=== PATIENT | male | born 1995 | race American Indian/Alaskan Native ===

== ENCOUNTER 2018-10-27 16:04 | Inpatient (IN) | payer SELFPAY ==
--- NOTE | 2018-10-27 16:28 | Emergency Department Report ---
<EMMANUEL MAYER - Last Filed: 10/27/18 19:59> ED Psych HPI - General Chief Complaint: Psych Stated Complaint: PSYCH Time Seen by Provider: 10/27/18 16:27 Source: EMS Mode of arrival: Stretcher Limitations: Altered Mental Status - History of Present Illness Initial Comments: Patient was arrested by the police after he was found climbing off a tree and jumping to a house roof of a house where he took off his pants and then jumped down and broke into somebody's house. Patient was very psychotic when EMS arrived. He was given 5mg of Haldol IM, 50mg of Benadryl IM and Versed 5mg intranasally. Currently patient is sleeping and further medical history is unobtainable at this time. Patient was placed on 1013 hold by the police detention attendant. MD Complaint: other (Acute Psychosis) -: Sudden, This afternoon History of same: No Quality: resolved prior to arrival Improves With: medication Worsens With: none Treatments Prior to Arrival: placed on mental he, chemical restraints - Related Data Home Medications Medication Instructions Recorded Confirmed Last Taken Unobtainable 10/27/18 10/27/18 Unknown Allergies Allergy/AdvReac Type Severity Reaction Status Date / Time Unable to Assess Allergy Unverified 10/27/18 16:19 ED Review of Systems Comment: Unobtainable due to pts medical conditions (Patient is sleeping from the medication he received from EMS (Versed, Benadryl and Haldol)) ED Past Medical Hx - Past Medical History Previous Medical History?: No - Social History Smoking Status: Unknown if ever smoked - Medications Home Medications: Home Medications Medication Instructions Recorded Confirmed Last Taken Type Unobtainable 10/27/18 10/27/18 Unknown History ED Physical Exam - General Limitations: Altered Mental Status General appearance: obtunded, other (Unkempt) - Head Head exam: Present: atraumatic, normal inspection - Eye Eye exam: Present: PERRL - ENT ENT exam: Present: mucous membranes dry - Neck Neck exam: Present: normal inspection, full ROM - Respiratory Respiratory exam: Present: normal lung sounds bilaterally - Cardiovascular Cardiovascular Exam: Present: tachycardia, normal heart sounds - GI/Abdominal GI/Abdominal exam: Present: soft, normal bowel sounds. Absent: distended, tende rness, guarding, rebound, rigid - Rectal Rectal exam: Present: deferred - External exam: Present: normal external exam - Extremities Exam Extremities exam: Present: normal inspection, full ROM, normal capillary refill - Back Exam Back exam: Present: normal inspection - Neurological Exam Neurological exam: Present: other ([place] by arrousable to painful stimulation. GCS = 9.) - Psychiatric Psychiatric exam: Present: flat affect ED Course - Reevaluation(s) Reevaluation #1: 10/27/18 19:52 On re-evaluation, patient is still obtunded but easily arousable to painful stimuli GCS = 9. - Consultations Consultation #1: 10/27/18 18:00 I discussed patient care with the hospitalist numerical control tool programmer Dr Albert regarding admission for Observation. He deferred admission but rather preferred the patient remain in the ED and managed in the until his Rhabdomyolysis resolves. Patient is on 1013 hold currently. He will be seen by Psychiatry after he has been medically cleared. Consultation #2: 10/27/18 19:58 Patient was signed out to Dr Pringle at shift change pending further evaluation and management. ED Medical Decision Making - Lab Data Result diagrams: 10/27/18 16:15 10/27/18 19:32 Lab Results 10/27/18 10/27/18 10/27/18 Range/Units 16:15 16:15 16:15 WBC (4.5-11.0) K/mm3 RBC (3.65-5.03) M/mm3 Hgb (11.8-15.2) gm/dl Hct (35.5-45.6) % MCV (84-94) fl MCH (28-32) pg MCHC (32-34) % RDW (13.2-15.2) % Plt Count (140-440) K/mm3 Lymph % (Auto) (13.4-35.0) % [place] % (Auto) (0.0-7.3) % Eos % (Auto) (0.0-4.3) % Baso % (Auto) (0.0-1.8) % Lymph # (1.2-5.4) K/mm3 [place] # (0.0-0.8) K/mm3 Eos # (0.0-0.4) K/mm3 Baso # (0.0-0.1) K/mm3 Seg Neutrophils % (40.0-70.0) % Seg Neutrophils # (1.8-7.7) K/mm3 PT (12.2-14.9) Sec. INR (0.87-1.13) APTT (24.2-36.6) Sec. Sodium 141 (137-145) mmol/L Potassium 4.4 (3.6-5.0) mmol/L Chloride 98.2 (98-107) mmol/L Carbon Dioxide 21 L (22-30) mmol/L Anion Gap 26 mmol/L BUN 19 (9-20) mg/dL Creatinine 1.9 H (0.8-1.5) mg/dL Estimated GFR 54 ml/min BUN/Creatinine Ratio 10 % Glucose 112 H (75-100) mg/dL Calcium 9.8 (8.4-10.2) mg/dL Total Bilirubin (0.1-1.2) mg/dL Direct Bilirubin (0-0.2) mg/dL Indirect Bilirubin mg/dL AST (5-40) units/L ALT (7-56) units/L Alkaline Phosphatase (35-129) units/L Troponin T (0.00-0.029) ng/mL Total Protein (6.3-8.2) g/dL Albumin (3.9-5) g/dL Albumin/Globulin Ratio % Salicylates < 0.3 L (2.8-20.0) mg/dL Acetaminophen < 5.0 L (10.0-30.0) ug/mL Plasma/Serum Alcohol (0-0.07) % 10/27/18 10/27/18 10/27/18 Range/Units 16:15 16:15 16:15 WBC 7.0 (4.5-11.0) K/mm3 RBC 4.67 (3.65-5.03) M/mm3 Hgb 14.5 (11.8-15.2) gm/dl Hct 42.6 (35.5-45.6) % MCV 91 (84-94) fl MCH 31 (28-32) pg MCHC 34 (32-34) % RDW 12.8 L (13.2-15.2) % Plt Count 298 (140-440) K/mm3 Lymph % (Auto) 23.8 (13.4-35.0) % [place] % (Auto) 7.8 H (0.0-7.3) % Eos % (Auto) 1.3 (0.0-4.3) % Baso % (Auto) 0.8 (0.0-1.8) % Lymph # 1.7 (1.2-5.4) K/mm3 [place] # 0.5 (0.0-0.8) K/mm3 Eos # 0.1 (0.0-0.4) K/mm3 Baso # 0.1 (0.0-0.1) K/mm3 Seg Neutrophils % 66.3 (40.0-70.0) % Seg Neutrophils # 4.6 (1.8-7.7) K/mm3 PT (12.2-14.9) Sec. INR (0.87-1.13) APTT (24.2-36.6) Sec. Sodium (137-145) mmol/L Potassium (3.6-5.0) mmol/L Chloride (98-107) mmol/L Carbon Dioxide (22-30) mmol/L Anion Gap mmol/L BUN (9-20) mg/dL Creatinine (0.8-1.5) mg/dL Estimated GFR ml/min BUN/Creatinine Ratio % Glucose (75-100) mg/dL Calcium (8.4-10.2) mg/dL Total Bilirubin 0.60 (0.1-1.2) mg/dL Direct Bilirubin < 0.2 (0-0.2) mg/dL Indirect Bilirubin 0.4 mg/dL AST 55 H (5-40) units/L ALT 59 H (7-56) units/L Alkaline Phosphatase 86 (35-129) units/L Troponin T (0.00-0.029) ng/mL Total Protein 7.5 (6.3-8.2) g/dL Albumin 4.8 (3.9-5) g/dL Albumin/Globulin Ratio 1.8 % Salicylates (2.8-20.0) mg/dL Acetaminophen (10.0-30.0) ug/mL Plasma/Serum Alcohol < 0.01 (0-0.07) % 10/27/18 10/27/18 Range/Units 16:15 16:42 WBC (4.5-11.0) K/mm3 RBC (3.65-5.03) M/mm3 Hgb (11.8-15.2) gm/dl Hct (35.5-45.6) % MCV (84-94) fl MCH (28-32) pg MCHC (32-34) % RDW (13.2-15.2) % Plt Count (140-440) K/mm3 Lymph % (Auto) (13.4-35.0) % [place] % (Auto) (0.0-7.3) % Eos % (Auto) (0.0-4.3) % Baso % (Auto) (0.0-1.8) % Lymph # (1.2-5.4) K/mm3 [place] # (0.0-0.8) K/mm3 Eos # (0.0-0.4) K/mm3 Baso # (0.0-0.1) K/mm3 Seg Neutrophils % (40.0-70.0) % Seg Neutrophils # (1.8-7.7) K/mm3 PT 15.1 H (12.2-14.9) Sec. INR 1.12 (0.87-1.13) APTT 26.4 (24.2-36.6) Sec. Sodium (137-145) mmol/L Potassium (3.6-5.0) mmol/L Chloride (98-107) mmol/L Carbon Dioxide (22-30) mmol/L Anion Gap mmol/L BUN (9-20) mg/dL Creatinine (0.8-1.5) mg/dL Estimated GFR ml/min BUN/Creatinine Ratio % Glucose (75-100) mg/dL Calcium (8.4-10.2) mg/dL Total Bilirubin (0.1-1.2) mg/dL Direct Bilirubin (0-0.2) mg/dL Indirect Bilirubin mg/dL AST (5-40) units/L ALT (7-56) units/L Alkaline Phosphatase (35-129) units/L Troponin T < 0.010 (0.00-0.029) ng/mL Total Protein (6.3-8.2) g/dL Albumin (3.9-5) g/dL Albumin/Globulin Ratio % Salicylates (2.8-20.0) mg/dL Acetaminophen (10.0-30.0) ug/mL Plasma/Serum Alcohol (0-0.07) % - EKG Data -: EKG Interpreted by Me EKG shows normal: sinus rhythm Rate: tachycardia (109) - EKG Data When compared to previous EKG there are: previous EKG unavailable Interpretation: nonspecific ST-T wave ev 10/27/18 17:25 EKG was sent to the Child Protective Services Social Worker numerical control tool programmer Dr Pickard who reviewed it and agreed with the interpretaion. - Radiology Data Radiology results: report reviewed ED Disposition Clinical Impression: Acute psychosis, Maxillary sinusitis, acute, DAVID (acute kidney injury), Dehydration after exertion, Methamphetamine abuse, Polysubstance abuse Rhabdomyolysis Qualifiers: Rhabdomyolysis type: non-traumatic Qualified Code(s): M62.82 - Rhabdomyolysis Disposition: OP ADMIT IP TO THIS HOSP Does the pt Need Aspirin: No Condition: Stable Time of Disposition: 18:00 <LATANYA PRINGLE - Last Filed: 10/27/18 20:33> ED Medical Decision Making - Lab Data Result diagrams: 10/27/18 16:15 10/27/18 19:32 - Medical Decision Making I have reviewed the patient's case and spoken with the hospitalist, Dr. Albert, myself. Patient is presenting status post a psychiatric episode with this acute psychosis most likely secondary to drug abuse and rhabdomyolysis with acute kidney injury. Patient will need medical clearance for placement in psychiatric facility. The issue with this patient is that he also needs treatment for his rhabdomyolysis. Initially Dr. Ramirez who was planning to admit the patient however had discussed the case with Dr. Albert and since the patient is uninsured and so as not to add more financial burden to the patient's case the patient will remain in the emergency department with the hospitalist consult in to manage the rhabdomyolysis and acute kidney injury. Coronary Dr. Albert patient likely could be medically cleared within 2 days. He doesn't patient is uninsured placing the patient in a psych facility likely wouldn't result in the ER stay of approximately 3-5 days. I think it reasonable not to admit the pa megan at this time. We will continue to monitor patient for any changes in his medical condition that would warrant inpatient status. Critical Care Time: Yes (30) ED Disposition Is pt being admited?: No <NADIR DELGADO - Last Filed: 10/28/18 08:21> ED Review of Systems ROS: Stated complaint: PSYCH Other details as noted in HPI ED Course Vital Signs 10/27/18 10/27/18 10/27/18 16:16 17:35 17:37 Temperature Pulse Rate 105 H 85 Respiratory 26 H 18 19 Rate Blood Pressure 130/81 107/56 Blood Pressure [Left] O2 Sat by Pulse 99 100 100 Oximetry 10/27/18 10/27/18 10/27/18 17:38 17:45 18:00 Temperature 97.7 F Pulse Rate 19 L 83 74 Respiratory 19 18 15 Rate Blood Pressure 107/56 110/72 Blood Pressure 107/56 [Left] O2 Sat by Pulse 100 100 99 Oximetry 10/27/18 10/27/18 10/27/18 18:15 18:31 18:45 Temperature Pulse Rate 81 78 75 Respiratory 18 18 17 Rate Blood Pressure 110/72 110/72 110/72 Blood Pressure [Left] O2 Sat by Pulse 100 100 100 Oximetry 10/27/18 10/27/18 10/27/18 19:01 19:15 19:31 Temperature Pulse Rate 89 111 H 82 Respiratory 14 16 16 Rate Blood Pressure 114/61 114/61 114/61 Blood Pressure [Left] O2 Sat by Pulse 100 100 Oximetry 10/27/18 10/27/18 10/27/18 19:45 20:00 20:15 Temperature Pulse Rate 101 H 80 99 H Respiratory 17 15 15 Rate Blood Pressure 114/61 115/66 115/66 Blood Pressure [Left] O2 Sat by Pulse 100 100 Oximetry 10/27/18 10/27/18 10/27/18 20:31 20:45 21:00 Temperature Pulse Rate 103 H 91 H 88 Respiratory 14 16 16 Rate Blood Pressure 115/66 115/66 114/56 Blood Pressure [Left] O2 Sat by Pulse 100 100 Oximetry 10/27/18 10/27/18 10/27/18 21:15 21:31 21:45 Temperature Pulse Rate 90 87 101 H Respiratory 17 17 14 Rate Blood Pressure 114/56 114/56 114/56 Blood Pressure [Left] O2 Sat by Pulse 99 99 100 Oximetry 10/27/18 10/27/18 10/27/18 22:00 22:15 22:31 Temperature Pulse Rate 80 94 H 79 Respiratory 16 13 17 Rate Blood Pressure 116/61 116/61 116/61 Blood Pressure [Left] O2 Sat by Pulse Oximetry 10/27/18 10/27/18 10/27/18 22:45 23:01 23:15 Temperature Pulse Rate 80 70 72 Respiratory 16 10 L 17 Rate Blood Pressure 116/61 116/61 116/61 Blood Pressure [Left] O2 Sat by Pulse Oximetry 10/27/18 10/27/18 10/28/18 23:31 23:45 00:00 Temperature Pulse Rate 78 76 79 Respiratory 16 16 19 Rate Blood Pressure 116/61 114/60 130/73 Blood Pressure [Left] O2 Sat by Pulse Oximetry 10/28/18 10/28/18 10/28/18 00:15 00:31 00:45 Temperature Pulse Rate 61 72 84 Respiratory 14 15 19 Rate Blood Pressure 130/73 130/73 130/73 Blood Pressure [Left] O2 Sat by Pulse Oximetry 10/28/18 10/28/18 10/28/18 01:00 01:30 02:00 Temperature Pulse Rate 73 74 71 Respiratory 17 15 16 Rate Blood Pressure 116/69 116/69 110/51 Blood Pressure [Left] O2 Sat by Pulse Oximetry 10/28/18 10/28/18 10/28/18 02:31 03:00 03:31 Temperature Pulse Rate 59 L 70 71 Respiratory 14 14 14 Rate Blood Pressure 110/51 128/85 128/85 Blood Pressure [Left] O2 Sat by Pulse Oximetry 10/28/18 10/28/18 10/28/18 04:01 04:31 05:01 Temperature Pulse Rate 90 67 73 Respiratory 19 13 15 Rate Blood Pressure 128/85 131/51 105/54 Blood Pressure [Left] O2 Sat by Pulse Oximetry 10/28/18 10/28/18 10/28/18 05:31 06:01 06:31 Temperature Pulse Rate 71 72 66 Respiratory 16 13 14 Rate Blood Pressure 105/54 104/48 104/48 Blood Pressure [Left] O2 Sat by Pulse Oximetry 10/28/18 10/28/18 07:00 07:31 Temperature Pulse Rate 73 63 Respiratory 13 14 Rate Blood Pressure 111/54 111/54 Blood Pressure [Left] O2 Sat by Pulse Oximetry ED Medical Decision Making - Lab Data Result diagrams: 10/27/18 16:15 10/28/18 06:56 - Medical Decision Making I was asked to review patient's case by the nurse. Apparently he has remained sedated since ED stay and he is still unable to provide any history of present illness or informed staff of his allergies. CT head was reviewed. Patient received normal saline 5 L in the department with improvement and creatinine however CK level has almost doubled despite aggressive IV hydration and sodium bicarbonate. UDS Postive for meth, benzo, and marijuana. Patient will be admitted to the hospitalist service for further management. Case discussed with Dr. Guardado. Dr Lyle to admit Critical care attestation.: If time is entered above; I have spent that time in minutes in the direct care of this critically ill patient, excluding procedure time. ED Disposition Is pt being admited?: Yes Time of Disposition: 08:13 (admit to hosptialist service with psych consult)
[2018-10-27] MEDS ORDERED: NACL 0.9% 1000 ML 1,000 ML IV ONE ×3 (16:31→18:48)
[2018-10-27] MEDS ORDERED: NACL 0.9% 1000 ML 2,000 ML ONE (16:34)
[2018-10-27 16:46] LABS: Basophils # (Auto) 0.1 K/mm3 (0.0-0.1); Basophils % (Auto) 0.8 % (0.0-1.8); Eosinophils # (Auto) 0.1 K/mm3 (0.0-0.4); Eosinophils % (Auto) 1.3 % (0.0-4.3); Hematocrit 42.6 % (35.5-45.6); Hemoglobin 14.5 gm/dl (11.8-15.2); Lymphocytes # (Auto) 1.7 K/mm3 (1.2-5.4); Lymphocytes % (Auto) 23.8 % (13.4-35.0); Mean Corpuscular HGB Conc 34 % (32-34); Mean Corpuscular Volume 91 fl (84-94); Monocytes # (Auto) 0.5 K/mm3 (0.0-0.8); Monocytes % (Auto) 7.8 % (0.0-7.3); Platelet Count 298 K/mm3 (140-440); Red Blood Count 4.67 M/mm3 (3.65-5.03); Red Cell Distribution Width 12.8 % (13.2-15.2)
[2018-10-27 16:58] LABS: INR 1.12 (0.87-1.13)
[2018-10-27 16:59] LABS: Partial Thromboplastin Time 26.4 Sec. (24.2-36.6)
[2018-10-27 17:07] LABS: Calcium 9.8 mg/dL (8.4-10.2)
[2018-10-27 17:22] LABS: Alanine Aminotransferase 59 units/L (7-56); Albumin 4.8 g/dL (3.9-5)
[2018-10-27 17:23] LABS: Bilirubin,Direct < 0.2 mg/dL (0-0.2)
--- NOTE | 2018-10-27 18:03 | Consultation ---
History of Present Illness - Reason for Consult Consult date: 10/27/18 Reason for consult: Initial Psychiatric Evaluation - Chief Complaint Chief complaint: Patient sedated. - History of Present Psychiatric Illness Patient is a 23 year old male that was brought to the emergency room via EMS after he was found climbing off a tree, jumping to a house roof of a house where he took off his pants, and then jumped down and broke into somebody's house. Patient was very psychotic when EMS arrived. He was given 5mg of Haldol IM, 50mg of Benadryl IM and Versed 5mg intranasally. Currently patient is sleeping and further medical history is unobtainable at this time. At this time patient is sedated. Provider is unable to obtain assess. Current psychiatric medications: Unable to Assess. Past psychiatric history: Unable to Assess. Past psychiatric medication trials: Unable to Assess. History of trauma/abuse: Unable to Assess. Drugs/alcohol abuse history: Unable to Assess. Social history: Unable to Assess. Family History: Unable to Assess. Medications and Allergies Allergies Allergy/AdvReac Type Severity Reaction Status Date / Time Unable to Assess Allergy Unverified 10/27/18 16:19 Active Meds: Active Medications Sodium Chloride (Nacl 0.9% 1000 Ml) 1,000 mls @ 250 mls/hr IV ONCE ONE Stop: 10/27/18 21:56 Mental Status Exam - Vital signs Last Vital Signs Temp 97.7 F 10/27/18 17:38 Pulse 19 L 10/27/18 17:38 Resp 19 10/27/18 17:38 BP 107/56 10/27/18 17:38 Pulse Ox 100 10/27/18 17:38 - Exam Narrative exam: Mental Status Exam General Appearance: Casually dressed Eye Contact: Unable to Assess. Attitude/Behavior: Unable to Assess. Sensorium: Unable to Assess. Orientation: Unable to Assess. Psychomotor and Musculoskeletal Activity: Unable to Assess. Mood: Unable to Assess. Affect: Unable to Assess. Speech/Language: Unable to Assess. Thought Process: Unable to Assess. Though Content: Unable to Assess. Perception: Unable to Assess. Concentration/Attention: Unable to Assess. Suicidal Ideation/Plan: Unable to Assess. Homicidal Ideation/Plan: Unable to Assess. Judgment: Unable to Assess. Insight: Unable to Assess. Results Result Diagrams: 10/27/18 16:15 10/27/18 16:15 Abnormal lab results 10/27/18 10/27/18 10/27/18 Range/Units 16:15 16:15 16:15 RDW (13.2-15.2) % [place] % (Auto) (0.0-7.3) % PT (12.2-14.9) Sec. Carbon Dioxide 21 L (22-30) mmol/L Creatinine 1.9 H (0.8-1.5) mg/dL Glucose 112 H (75-100) mg/dL AST (5-40) units/L ALT (7-56) units/L Total Creatine Kinase (55-170) units/L Salicylates < 0.3 L (2.8-20.0) mg/dL Acetaminophen < 5.0 L (10.0-30.0) ug/mL 10/27/18 10/27/18 10/27/18 Range/Units 16:15 16:15 16:15 RDW 12.8 L (13.2-15.2) % [place] % (Auto) 7.8 H (0.0-7.3) % PT (12.2-14.9) Sec. Carbon Dioxide (22-30) mmol/L Creatinine (0.8-1.5) mg/dL Glucose (75-100) mg/dL AST 55 H (5-40) units/L ALT 59 H (7-56) units/L Total Creatine Kinase 2592 H (55-170) units/L Salicylates (2.8-20.0) mg/dL Acetaminophen (10.0-30.0) ug/mL 10/27/18 Range/Units 16:42 RDW (13.2-15.2) % [place] % (Auto) (0.0-7.3) % PT 15.1 H (12.2-14.9) Sec. Carbon Dioxide (22-30) mmol/L Creatinine (0.8-1.5) mg/dL Glucose (75-100) mg/dL AST (5-40) units/L ALT (7-56) units/L Total Creatine Kinase (55-170) units/L Salicylates (2.8-20.0) mg/dL Acetaminophen (10.0-30.0) ug/mL All other labs normal. Assessment and Plan Assessment and plan: Impression: Provider unable to assess. Patient sedated. Recommendation/Plan: 1. Continue 1013. 2. Will reassess in 24 hours.
--- NOTE | 2018-10-27 18:36 | Cat Scan Report ---
PROCEDURE: CT HEAD/BRAIN WO CON TECHNIQUE: Spiral CT imaging of the brain was obtained without IV contrast. HISTORY: acute psychosis COMPARISONS: None FINDINGS: Brain: Brain density appears normal. No evidence of intracranial hemorrhage. No parenchymal hemorr julieta, mass lesions or mass effect are seen. No abnormal extra-axial fluid collects or masses are see n. Ventricles: Ventricles are normal size and are midline. Bone Windows: No evidence of skull fracture. Paranasal sinuses: Small air-fluid level visualized left maxillary sinus suggesting acute sinusitis. Mastoid air cells: Clear. IMPRESSION: Negative unenhanced CT of the brain. Mild acute left maxillary sinusitis. This document is electronically signed by Chris Langley MD., Oct 27 2018 06:33:59 PM ET
--- NOTE | 2018-10-27 18:42 | XRay Report ---
PROCEDURE: Chest. TECHNIQUE: Portable AP view. HISTORY: Acute psychosis. COMPARISONS: None. FINDINGS: The heart and mediastinum appear normal. The lungs are clear and well expanded. There are no pleural effusions. The soft tissues and regional skeleton are unremarkable. There may be an old fracture of t he right clavicle. IMPRESSION: Negative portable chest. This document is electronically signed by Yefri Tate MD., Oct 27 2018 06:40:48 PM ET
[2018-10-27] MEDS: NACL 0.9% 1000 ML 1,000 ML IV ONE ×2 (18:55→18:56)
[2018-10-27] MEDS ORDERED: NACL 0.9% 500 ML 500 ML IV ONE (19:00)
[2018-10-27 19:51] LABS: Bilirubin,Urine NEG (Negative); Blood,Urine MOD (Negative); Color,Urine Yellow (Yellow); Mucus,Urine FEW /HPF
[2018-10-27 19:57] LABS: Cocaine Screen,Urine PRESUMPTIVE NEGATIVE; Methadone Screen,Urine PRESUMPTIVE NEGATIVE; Opiate Screen,Urine PRESUMPTIVE NEGATIVE
[2018-10-27 19:59] LABS: BUN/Creatinine Ratio 11; Blood Urea Nitrogen 17 mg/dL (9-20); Calcium 8.1 mg/dL (8.4-10.2); Hemolysis Index 14
[2018-10-27 20:11] LABS: Amphetamine Screen,Urine PRESUMPTIVE POSITIVE; Benzodiazepines Screen,Urine PRESUMPTIVE POSITIVE; Cannabinoid Screen,Urine PRESUMPTIVE POSITIVE
--- NOTE | 2018-10-28 06:50 | Consultation ---
History of Present Illness - Reason for Consult Consult date: 10/27/18 Requesting physician: LATANYA PRAJAPATI - History of Present Illness 28 YO Male with Psychosis, currently boarding in ED with [address] EMS was notified due to erratic behavior, and upon arrival the patient had removed all of his clothes and forced his way into a private residence. Pt was restrained and given haldol and anxiolytic therapy. Consulted placed for medical management. Pt found to have elevated CK levels, and mildly elevated creatnine level suspected secondary to volume depletion. No therapy initiated prior to lab draws. Pt treated with supportive care and repeat labs. Pt resting comfortably in bed at time of exam. Past History Past Medical History: No medical history Past Surgical History: No surgical history Social history: single Family history: no significant family history Medications and Allergies Allergies Allergy/AdvReac Type Severity Reaction Status Date / Time Unable to Assess Allergy Unverified 10/27/18 16:19 Home Medications Medication Instructions Recorded Confirmed Last Taken Type Unobtainable 10/27/18 10/27/18 Unknown History Active Meds: Active Medications Sodium Chloride (Nacl 0.45%) 2,000 mls @ 999 mls/hr IV DIRECT MEREDITH Review of Systems ROS unobtainable: due to mental status Exam - Constitutional Vitals: Temp Pulse Resp BP Pulse Ox 97.7 F 71 16 105/54 100 10/27/18 17:38 10/28/18 05:31 10/28/18 05:31 10/28/18 05:31 10/27/18 21:45 General appearance: Present: no acute distress - EENT Eyes: Present: PERRL, miosis ENT: hearing intact, clear oral mucosa - Neck Neck: Present: supple, normal ROM - Respiratory Respiratory effort: normal Respiratory: bilateral: CTA - Cardiovascular Heart Sounds: Present: S1 & S2. Absent: rub, click - Extremities Extremities: pulses symmetrical, No edema Peripheral Pulses: within normal limits - Abdominal General gastrointestinal: Present: soft, non-tender, non-distended, normal bowel sounds Male genitourinary: Present: normal - Integumentary Integumentary: Present: clear, warm, dry - Musculoskeletal Musculoskeletal: gait normal, strength equal bilaterally - Psychiatric Psychiatric: appropriate mood/affect, intact judgment & insight - Neurologic Neurologic: CNII-XII intact, moves all extremities Results - Labs CBC & Chem 7: 10/27/18 16:15 10/27/18 19:32 Labs: Abnormal lab results 10/27/18 10/27/18 10/27/18 Range/Units 16:15 16:15 16:15 RDW (13.2-15.2) % [place] % (Auto) (0.0-7.3) % PT (12.2-14.9) Sec. Carbon Dioxide 21 L (22-30) mmol/L Creatinine 1.9 H (0.8-1.5) mg/dL Glucose 112 H (75-100) mg/dL Calcium (8.4-10.2) mg/dL AST (5-40) units/L ALT (7-56) units/L Total Creatine Kinase (55-170) units/L Salicylates < 0.3 L (2.8-20.0) mg/dL Acetaminophen < 5.0 L (10.0-30.0) ug/mL 10/27/18 10/27/18 10/27/18 Range/Units 16:15 16:15 16:15 RDW 12.8 L (13.2-15.2) % [place] % (Auto) 7.8 H (0.0-7.3) % PT (12.2-14.9) Sec. Carbon Dioxide (22-30) mmol/L Creatinine (0.8-1.5) mg/dL Glucose (75-100) mg/dL Calcium (8.4-10.2) mg/dL AST 55 H (5-40) units/L ALT 59 H (7-56) units/L Total Creatine Kinase 2592 H (55-170) units/L Salicylates (2.8-20.0) mg/dL Acetaminophen (10.0-30.0) ug/mL 10/27/18 10/27/18 10/27/18 Range/Units 16:42 18:32 19:32 RDW (13.2-15.2) % [place] % (Auto) (0.0-7.3) % PT 15.1 H (12.2-14.9) Sec. Carbon Dioxide (22-30) mmol/L Creatinine (0.8-1.5) mg/dL Glucose (75-100) mg/dL Calcium 8.1 L D (8.4-10.2) mg/dL AST (5-40) units/L ALT (7-56) units/L Total Creatine Kinase 2921 H (55-170) units/L Salicylates (2.8-20.0) mg/dL Acetaminophen (10.0-30.0) ug/mL Assessment and Plan - Patient Problems (1) Dehydration after exertion Current Visit: Yes Status: Acute Plan to address problem: IVF resuscitation therapy, monitor uop q shift, repeat CK, BMP after therapy initiated. Suspect rapid normalization of lab values after volume resuscitation therpay.
[2018-10-28] MEDS ORDERED: NACL 0.45% 2,000 ML IV SCH (07:00)
[2018-10-28 07:46] LABS: BUN/Creatinine Ratio 11; Blood Urea Nitrogen 11 mg/dL (9-20); Calcium 8.4 mg/dL (8.4-10.2); Hemolysis Index 15
--- NOTE | 2018-10-28 10:17 | Progress Note ---
Assessment and Plan Assessment and plan: Acute rhabdomyolysis. Continue IV fluid hydration and monitor serial CKs. Acute psychosis. Continue management per psychiatry. Acute renal failure. Etiology secondary to vasomotor nephropathy/dehydration. Patient's creatinine has improved from 1.5-1.0. Continue to monitor BMP. History Interval history: No new issues overnight. Hospitalist Physical - Constitutional Vitals: Temp Pulse Resp BP Pulse Ox 97.7 F 76 16 107/68 100 10/27/18 17:38 10/28/18 09:31 10/28/18 09:31 10/28/18 09:31 10/27/18 21:45 General appearance: Present: no acute distress - EENT Eyes: Present: PERRL, EOM intact ENT: hearing intact, clear oral mucosa, dentition normal - Neck Neck: Present: supple, normal ROM - Respiratory Respiratory effort: normal Respiratory: bilateral: CTA - Cardiovascular Rhythm: regular Heart Sounds: Present: S1 & S2. Absent: gallop, rub - Extremities Extremities: no ischemia, No edema, Full ROM - Abdominal General gastrointestinal: soft, non-tender, non-distended, normal bowel sounds - Integumentary Integumentary: Present: clear, warm, dry - Neurologic Neurologic: CNII-XII intact, moves all extremities Results - Labs CBC & Chem 7: 10/27/18 16:15 10/28/18 06:56 Labs: Laboratory Last Values WBC 7.0 K/mm3 (4.5-11.0) 10/27/18 16:15 RBC 4.67 M/mm3 (3.65-5.03) 10/27/18 16:15 Hgb 14.5 gm/dl (11.8-15.2) 10/27/18 16:15 Hct 42.6 % (35.5-45.6) 10/27/18 16:15 MCV 91 fl (84-94) 10/27/18 16:15 MCH 31 pg (28-32) 10/27/18 16:15 MCHC 34 % (32-34) 10/27/18 16:15 RDW 12.8 % (13.2-15.2) L 10/27/18 16:15 Plt Count 298 K/mm3 (140-440) 10/27/18 16:15 Lymph % (Auto) 23.8 % (13.4-35.0) 10/27/18 16:15 [place] % (Auto) 7.8 % (0.0-7.3) H 10/27/18 16:15 Eos % (Auto) 1.3 % (0.0-4.3) 10/27/18 16:15 Baso % (Auto) 0.8 % (0.0-1.8) 10/27/18 16:15 Lymph # 1.7 K/mm3 (1.2-5.4) 10/27/18 16:15 [place] # 0.5 K/mm3 (0.0-0.8) 10/27/18 16:15 Eos # 0.1 K/mm3 (0.0-0.4) 10/27/18 16:15 Baso # 0.1 K/mm3 (0.0-0.1) 10/27/18 16:15 Seg Neutrophils % 66.3 % (40.0-70.0) 10/27/18 16:15 Seg Neutrophils # 4.6 K/mm3 (1.8-7.7) 10/27/18 16:15 PT 15.1 Sec. (12.2-14.9) H 10/27/18 16:42 INR 1.12 (0.87-1.13) 10/27/18 16:42 APTT 26.4 Sec. (24.2-36.6) 10/27/18 16:42 Sodium 137 mmol/L (137-145) 10/28/18 06:56 Potassium 4.5 mmol/L (3.6-5.0) 10/28/18 06:56 Chloride 102.5 mmol/L (98-107) 10/28/18 06:56 Carbon Dioxide 22 mmol/L (22-30) 10/28/18 06:56 Anion Gap 17 mmol/L 10/28/18 06:56 BUN 11 mg/dL (9-20) 10/28/18 06:56 Creatinine 1.0 mg/dL (0.8-1.5) 10/28/18 06:56 Estimated GFR > 60 ml/min 10/28/18 06:56 BUN/Creatinine Ratio 11 % 10/28/18 06:56 Glucose 77 mg/dL (75-100) 10/28/18 06:56 Calcium 8.4 mg/dL (8.4-10.2) 10/28/18 06:56 Total Bilirubin 0.60 mg/dL (0.1-1.2) 10/27/18 16:15 Direct Bilirubin < 0.2 mg/dL (0-0.2) 10/27/18 16:15 Indirect Bilirubin 0.4 mg/dL 10/27/18 16:15 AST 55 units/L (5-40) H 10/27/18 16:15 ALT 59 units/L (7-56) H 10/27/18 16:15 Alkaline Phosphatase 86 units/L (35-129) 10/27/18 16:15 Total Creatine Kinase 4375 units/L (55-170) H 10/28/18 06:56 Troponin T < 0.010 ng/mL (0.00-0.029) 10/27/18 16:15 Total Protein 7.5 g/dL (6.3-8.2) 10/27/18 16:15 Albumin 4.8 g/dL (3.9-5) 10/27/18 16:15 Albumin/Globulin Ratio 1.8 % 10/27/18 16:15 Urine Color Yellow (Yellow) 10/27/18 Unknown Urine Turbidity Slightly-cloudy (Clear) 10/27/18 Unknown Urine pH 6.0 (5.0-7.0) 10/27/18 Unknown Ur Specific [place] 1.018 (1.003-1.030) 10/27/18 Unknown Urine Protein 30 mg/dl mg/dL (Negative) 10/27/18 Unknown Urine Glucose (UA) Neg mg/dL (Negative) 10/27/18 Unknown Urine Ketones Neg mg/dL (Negative) 10/27/18 Unknown Urine Blood Mod (Negative) 10/27/18 Unknown Urine Nitrite Neg (Negative) 10/27/18 Unknown Urine Bilirubin Neg (Negative) 10/27/18 Unknown Urine Urobilinogen 2.0 mg/dL (<2.0) 10/27/18 Unknown Ur Leukocyte Esterase Sm (Negative) 10/27/18 Unknown Urine WBC (Auto) 6.0 /HPF (0.0-6.0) 10/27/18 Unknown Urine RBC (Auto) 89.0 /HPF (0.0-6.0) 10/27/18 Unknown Urine Mucus Few /HPF 10/27/18 Unknown Salicylates < 0.3 mg/dL (2.8-20.0) L 10/27/18 16:15 Urine Opiates Screen Presumptive negative 10/27/18 Unknown Urine Methadone Screen Presumptive negative 10/27/18 Unknown Acetaminophen < 5.0 ug/mL (10.0-30.0) L 10/27/18 16:15 Ur Barbiturates Screen Presumptive negative 10/27/18 Unknown Ur Phencyclidine Scrn Presumptive negative 10/27/18 Unknown Ur Amphetamines Screen Presumptive positive 10/27/18 Unknown U Benzodiazepines Scrn Presumptive positive 10/27/18 Unknown Urine Cocaine Screen Presumptive negative 10/27/18 Unknown U Marijuana (THC) Screen Presumptive positive 10/27/18 Unknown Drugs of Abuse Note Disclamer 10/27/18 Unknown Plasma/Serum Alcohol < 0.01 % (0-0.07) 10/27/18 16:15 Active Medications - Current Medications Current Medications: Generic Name Dose Route Start Last Admin Trade Name Freq PRN Reason Stop Dose Admin Sodium Chloride 2,000 mls @ 999 mls/hr 10/28/18 07:00 Nacl 0.45% IV DIRECT MEREDITH
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
[2018-10-28] MEDS ORDERED: NACL 0.9% 1000 ML 1,000 ML IV SCH (17:00)
--- NOTE | 2018-10-28 18:19 | XRay Report ---
PROCEDURE: XR HAND 3+V LT TECHNIQUE: 3 views left hand HISTORY: pain and swelling COMPARISONS: None FINDINGS: Alignment normal. Mineralization normal. Joint spaces normal. No radiopaque foreign body. No acute fr acture. IMPRESSION: No acute fracture or malalignment.. This document is electronically signed by Sedrick Myrick MD., Oct 28 2018 06:17:04 PM ET
[2018-10-29 05:10] LABS: Basophils % (Auto) 0.6 % (0.0-1.8); Eosinophils # (Auto) 0.2 K/mm3 (0.0-0.4); Eosinophils % (Auto) 3.5 % (0.0-4.3); Hematocrit 37.8 % (35.5-45.6); Lymphocytes # (Auto) 1.7 K/mm3 (1.2-5.4); Lymphocytes % (Auto) 34.8 % (13.4-35.0); Mean Corpuscular HGB Conc 34 % (32-34); Mean Corpuscular Volume 90 fl (84-94); Monocytes # (Auto) 0.5 K/mm3 (0.0-0.8); Monocytes % (Auto) 10.4 % (0.0-7.3); Platelet Count 239 K/mm3 (140-440); Red Blood Count 4.18 M/mm3 (3.65-5.03); Red Cell Distribution Width 12.8 % (13.2-15.2)
[2018-10-29 05:21] LABS: BUN/Creatinine Ratio 12; Blood Urea Nitrogen 12 mg/dL (9-20); Calcium 8.6 mg/dL (8.4-10.2); Hemolysis Index 8
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
--- NOTE | 2018-10-29 11:59 | Progress Note ---
Assessment and Plan - Patient Problems (1) DAVID (acute kidney injury) Current Visit: Yes Status: Acute Plan to address problem: Secondary to vasomotor nephropathy. Continue aggressive IV hydration. (2) Acute psychosis Current Visit: Yes Status: Acute Plan to address problem: Does not appear to be acute psychosis at this time patient on 1013. Appears to be drug induced drug related. (3) Polysubstance abuse Current Visit: Yes Status: Acute Plan to address problem: This is cause for patient's acute psychosis methamphetamine and marijuana and benzodiazepine will add nicotine patch today. (4) Rhabdomyolysis Current Visit: Yes Status: Acute Qualifiers: Rhabdomyolysis type: non-traumatic Qualified Code(s): M62.82 - Rhabdomyolysis Plan to address problem: Improvement with IV fluids has decreased from [id number]. History Interval history: Patient answers questions appropriately. Just does not feel like being bothered. Was to be checked for HIV hepatitis C. Patient informed about the drugs in his system. Denies any help for drug rehabilitation at this time. No acute psychosis. This was most likely from methamphetamine Hospitalist Physical - Constitutional Vitals: Temp Pulse Resp BP Pulse Ox 97.7 F 60 16 108/70 99 10/29/18 06:39 10/29/18 06:39 10/29/18 06:39 10/29/18 06:39 10/29/18 06:39 General appearance: Present: no acute distress - EENT Eyes: Present: PERRL, EOM intact ENT: hearing intact, clear oral mucosa, dentition normal - Neck Neck: Present: supple, normal ROM - Respiratory Respiratory effort: normal Respiratory: bilateral: CTA - Cardiovascular Rhythm: regular Heart Sounds: Present: S1 & S2 - Extremities Extremities: no ischemia, pulses intact, No edema, normal temperature, normal color - Abdominal General gastrointestinal: soft, non-tender, non-distended, normal bowel sounds - Integumentary Integumentary: Present: clear, warm, dry - Psychiatric Psychiatric: appropriate mood/affect, intact judgment & insight Results - Labs CBC & Chem 7: 10/29/18 04:29 10/29/18 04:29 Labs: Laboratory Last Values WBC 4.9 K/mm3 (4.5-11.0) 10/29/18 04:29 RBC 4.18 M/mm3 (3.65-5.03) 10/29/18 04:29 Hgb 13.0 gm/dl (11.8-15.2) 10/29/18 04:29 Hct 37.8 % (35.5-45.6) 10/29/18 04:29 MCV 90 fl (84-94) 10/29/18 04:29 MCH 31 pg (28-32) 10/29/18 04:29 MCHC 34 % (32-34) 10/29/18 04:29 RDW 12.8 % (13.2-15.2) L 10/29/18 04:29 Plt Count 239 K/mm3 (140-440) 10/29/18 04:29 Lymph % (Auto) 34.8 % (13.4-35.0) 10/29/18 04:29 [place] % (Auto) 10.4 % (0.0-7.3) H 10/29/18 04:29 Eos % (Auto) 3.5 % (0.0-4.3) 10/29/18 04:29 Baso % (Auto) 0.6 % (0.0-1.8) 10/29/18 04:29 Lymph # 1.7 K/mm3 (1.2-5.4) 10/29/18 04:29 [place] # 0.5 K/mm3 (0.0-0.8) 10/29/18 04:29 Eos # 0.2 K/mm3 (0.0-0.4) 10/29/18 04:29 Baso # 0.0 K/mm3 (0.0-0.1) 10/29/18 04:29 Seg Neutrophils % 50.7 % (40.0-70.0) 10/29/18 04:29 Seg Neutrophils # 2.5 K/mm3 (1.8-7.7) 10/29/18 04:29 PT 15.1 Sec. (12.2-14.9) H 10/27/18 16:42 INR 1.12 (0.87-1.13) 10/27/18 16:42 APTT 26.4 Sec. (24.2-36.6) 10/27/18 16:42 Sodium 140 mmol/L (137-145) 10/29/18 04:29 Potassium 4.3 mmol/L (3.6-5.0) 10/29/18 04:29 Chloride 105.4 mmol/L (98-107) 10/29/18 04:29 Carbon Dioxide 27 mmol/L (22-30) 10/29/18 04:29 Anion Gap 12 mmol/L 10/29/18 04:29 BUN 12 mg/dL (9-20) 10/29/18 04:29 Creatinine 1.0 mg/dL (0.8-1.5) 10/29/18 04:29 Estimated GFR > 60 ml/min 10/29/18 04:29 BUN/Creatinine Ratio 12 % 10/29/18 04:29 Glucose 116 mg/dL (75-100) H 10/29/18 04:29 Calcium 8.6 mg/dL (8.4-10.2) 10/29/18 04:29 Total Bilirubin 0.60 mg/dL (0.1-1.2) 10/27/18 16:15 Direct Bilirubin < 0.2 mg/dL (0-0.2) 10/27/18 16:15 Indirect Bilirubin 0.4 mg/dL 10/27/18 16:15 AST 55 units/L (5-40) H 10/27/18 16:15 ALT 59 units/L (7-56) H 10/27/18 16:15 Alkaline Phosphatase 86 units/L (35-129) 10/27/18 16:15 Total Creatine Kinase 3103 units/L (55-170) H 10/29/18 04:29 Troponin T < 0.010 ng/mL (0.00-0.029) 10/27/18 16:15 Total Protein 7.5 g/dL (6.3-8.2) 10/27/18 16:15 Albumin 4.8 g/dL (3.9-5) 10/27/18 16:15 Albumin/Globulin Ratio 1.8 % 10/27/18 16:15 Urine Color Yellow (Yellow) 10/27/18 Unknown Urine Turbidity Slightly-cloudy (Clear) 10/27/18 Unknown Urine pH 6.0 (5.0-7.0) 10/27/18 Unknown Ur Specific [place] 1.018 (1.003-1.030) 10/27/18 Unknown Urine Protein 30 mg/dl mg/dL (Negative) 10/27/18 Unknown Urine Glucose (UA) Neg mg/dL (Negative) 10/27/18 Unknown Urine Ketones Neg mg/dL (Negative) 10/27/18 Unknown Urine Blood Mod (Negative) 10/27/18 Unknown Urine Nitrite Neg (Negative) 10/27/18 Unknown Urine Bilirubin Neg (Negative) 10/27/18 Unknown Urine Urobilinogen 2.0 mg/dL (<2.0) 10/27/18 Unknown Ur Leukocyte Esterase Sm (Negative) 10/27/18 Unknown Urine WBC (Auto) 6.0 /HPF (0.0-6.0) 10/27/18 Unknown Urine RBC (Auto) 89.0 /HPF (0.0-6.0) 10/27/18 Unknown Urine Mucus Few /HPF 10/27/18 Unknown Salicylates < 0.3 mg/dL (2.8-20.0) L 10/27/18 16:15 Urine Opiates Screen Presumptive negative 10/27/18 Unknown Urine Methadone Screen Presumptive negative 10/27/18 Unknown Acetaminophen < 5.0 ug/mL (10.0-30.0) L 10/27/18 16:15 Ur Barbiturates Screen Presumptive negative 10/27/18 Unknown Ur Phencyclidine Scrn Presumptive negative 10/27/18 Unknown Ur Amphetamines Screen Presumptive positive 10/27/18 Unknown U Benzodiazepines Scrn Presumptive positive 10/27/18 Unknown Urine Cocaine Screen Presumptive negative 10/27/18 Unknown U Marijuana (THC) Screen Presumptive positive 10/27/18 Unknown Drugs of Abuse Note Disclamer 10/27/18 Unknown Plasma/Serum Alcohol < 0.01 % (0-0.07) 10/27/18 16:15 Active Medications - Current Medications Current Medications: Generic Name Dose Route Start Last Admin Trade Name Jaimeq PRN Reason Stop Dose Admin Sodium Chloride 2,000 mls @ 999 mls/hr 10/28/18 07:00 Nacl 0.45% IV DIRECT MEREDITH Sodium Chloride 1,000 mls @ 100 mls/hr 10/28/18 17:00 10/28/18 17:45 Nacl 0.9% 1000 Ml IV 100 mls/hr DIRECT MEREDITH Administration
[2018-10-29] MEDS: HABITROL TD SCH (12:46)
[2018-10-29] MEDS: NACL 0.9% 1000 ML 1,000 ML IV SCH (21:29)
[2018-10-30 00:40] VITALS: BP 116/51
[2018-10-30 07:25] LABS: Alanine Aminotransferase 35 units/L (7-56); Albumin 3.6 g/dL (3.9-5); BUN/Creatinine Ratio 10; Blood Urea Nitrogen 9 mg/dL (9-20); Calcium 8.3 mg/dL (8.4-10.2); Hemolysis Index 3
[2018-10-30] MEDS: NACL 0.9% 1000 ML 1,000 ML IV SCH (07:56)
--- NOTE | 2018-10-30 09:26 | Progress Note ---
Hospitalist Physical - Constitutional Vitals: Temp Pulse Resp BP Pulse Ox 98.7 F 74 16 116/51 99 10/30/18 00:36 10/30/18 00:36 10/30/18 00:36 10/30/18 00:36 10/30/18 00:36 General appearance: Present: no acute distress Results - Labs CBC & Chem 7: 10/29/18 04:29 10/29/18 04:29 Labs: Laboratory Last Values WBC 4.9 K/mm3 (4.5-11.0) 10/29/18 04:29 RBC 4.18 M/mm3 (3.65-5.03) 10/29/18 04:29 Hgb 13.0 gm/dl (11.8-15.2) 10/29/18 04:29 Hct 37.8 % (35.5-45.6) 10/29/18 04:29 MCV 90 fl (84-94) 10/29/18 04:29 MCH 31 pg (28-32) 10/29/18 04:29 MCHC 34 % (32-34) 10/29/18 04:29 RDW 12.8 % (13.2-15.2) L 10/29/18 04:29 Plt Count 239 K/mm3 (140-440) 10/29/18 04:29 Lymph % (Auto) 34.8 % (13.4-35.0) 10/29/18 04:29 [place] % (Auto) 10.4 % (0.0-7.3) H 10/29/18 04:29 Eos % (Auto) 3.5 % (0.0-4.3) 10/29/18 04:29 Baso % (Auto) 0.6 % (0.0-1.8) 10/29/18 04:29 Lymph # 1.7 K/mm3 (1.2-5.4) 10/29/18 04:29 [place] # 0.5 K/mm3 (0.0-0.8) 10/29/18 04:29 Eos # 0.2 K/mm3 (0.0-0.4) 10/29/18 04:29 Baso # 0.0 K/mm3 (0.0-0.1) 10/29/18 04:29 Seg Neutrophils % 50.7 % (40.0-70.0) 10/29/18 04:29 Seg Neutrophils # 2.5 K/mm3 (1.8-7.7) 10/29/18 04:29 PT 15.1 Sec. (12.2-14.9) H 10/27/18 16:42 INR 1.12 (0.87-1.13) 10/27/18 16:42 APTT 26.4 Sec. (24.2-36.6) 10/27/18 16:42 Sodium 140 mmol/L (137-145) 10/29/18 04:29 Potassium 4.3 mmol/L (3.6-5.0) 10/29/18 04:29 Chloride 105.4 mmol/L (98-107) 10/29/18 04:29 Carbon Dioxide 27 mmol/L (22-30) 10/29/18 04:29 12 mmol/L 10/29/18 04:29 BUN 12 mg/dL (9-20) 10/29/18 04:29 1.0 mg/dL (0.8-1.5) 10/29/18 04:29 Estimated GFR > 60 ml/min 10/29/18 04:29 12 % 10/29/18 04:29 Glucose 116 mg/dL (75-100) H 10/29/18 04:29 Calcium 8.6 mg/dL (8.4-10.2) 10/29/18 04:29 0.60 mg/dL (0.1-1.2) 10/27/18 16:15 < 0.2 mg/dL (0-0.2) 10/27/18 16:15 0.4 mg/dL 10/27/18 16:15 AST 55 units/L (5-40) H 10/27/18 16:15 ALT 59 units/L (7-56) H 10/27/18 16:15 86 units/L (35-129) 10/27/18 16:15 2513 units/L (55-170) H 10/30/18 05:35 < 0.010 ng/mL (0.00-0.029) 10/27/18 16:15 7.5 g/dL (6.3-8.2) 10/27/18 16:15 4.8 g/dL (3.9-5) 10/27/18 16:15 1.8 % 10/27/18 16:15 Yellow (Yellow) 10/27/18 Unknown Slightly-cloudy (Clear) 10/27/18 Unknown 6.0 (5.0-7.0) 10/27/18 Unknown Ur Specific [place] 1.018 (1.003-1.030) 10/27/18 Unknown 30 mg/dl mg/dL (Negative) 10/27/18 Unknown Neg mg/dL (Negative) 10/27/18 Unknown Neg mg/dL (Negative) 10/27/18 Unknown Mod (Negative) 10/27/18 Unknown Neg (Negative) 10/27/18 Unknown Neg (Negative) 10/27/18 Unknown 2.0 mg/dL (<2.0) 10/27/18 Unknown Ur Leukocyte Esterase Sm (Negative) 10/27/18 Unknown 6.0 /HPF (0.0-6.0) 10/27/18 Unknown 89.0 /HPF (0.0-6.0) 10/27/18 Unknown Few /HPF 10/27/18 Unknown Salicylates < 0.3 mg/dL (2.8-20.0) L 10/27/18 16:15 Presumptive negative 10/27/18 Unknown Presumptive negative 10/27/18 Unknown Acetaminophen < 5.0 ug/mL (10.0-30.0) L 10/27/18 16:15 Ur Barbiturates Screen Presumptive negative 10/27/18 Unknown Ur Phencyclidine Scrn Presumptive negative 10/27/18 Unknown Ur Amphetamines Screen Presumptive positive 10/27/18 Unknown U Benzodiazepines Scrn Presumptive positive 10/27/18 Unknown Presumptive negative 10/27/18 Unknown U Marijuana (THC) Screen Presumptive positive 10/27/18 Unknown Disclamer 10/27/18 Unknown Plasma/Serum Alcohol < 0.01 % (0-0.07) 10/27/18 16:15 Active Medications - Current Medications Current Medications: Generic Name Dose Route Start Last Admin Trade Name Freq PRN Reason Stop Dose Admin Sodium Chloride 1,000 mls @ 100 mls/hr 10/29/18 13:00 10/30/18 07:56 Nacl 0.9% 1000 Ml IV 100 mls/hr DIRECT MEREDITH Administration Nicotine 14 mg 10/29/18 12:00 10/29/18 12:46 Habitrol TD 14 mg QDAY MEREDITH Administration
[2018-10-30] MEDS: HABITROL TD SCH (09:42)
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
--- NOTE | 2018-10-30 16:45 | Event Note ---
Date: 10/30/18 Patient left against medical advice
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
== END 2018-10-30 12:02 | disposition left against medical advice (07) | DRG 557 ==
LOC: ED 16:04 → 3A 10-28 09:38
PROVIDERS: ADMIT Hospitalist; ATTEND Internal Medicine
DX: M62.82 Rhabdomyolysis (principal); N17.0 Acute kidney failure with tubular necrosis; F23 Brief psychotic disorder; E86.0 Dehydration; J01.00 Acute maxillary sinusitis, unspecified; F19.10 Other psychoactive substance abuse, uncomplicated
CPT/HCPCS: 36415; 70450; 71045; 80048; 80053; 80076; 80307; 80320; 81001; 82550; 84484; 85025; 85610; 85730; 93005; 93010; 99406; G0378; G0480; J7030